=== PATIENT | male | born 1985 | race Native Hawaiian/Other Pacific Islander ===

== ENCOUNTER 2025-04-04 18:42 | Emergency (ER) | payer OTHER ==
[~2025-04-04] VITALS: Ht 177.8 cm; Wt 99.8 kg
[2025-04-04] MEDS ORDERED: Ketorolac Tromethamine 30mg Vial IM ONE (19:05)
[2025-04-04] MEDS ORDERED: HYDR1TAB94 PO (20:25)
== END 2025-04-04 20:41 | disposition home or self-care (01) ==
LOC: ER 18:42
DX: S62.305A Unspecified fracture of fourth metacarpal bone, left hand, initial encounter for closed fracture (principal); W17.89XA Other fall from one level to another, initial encounter; Y93.39 Activity, other involving climbing, rappelling and jumping off
CPT/HCPCS: 73130; 96372; 99283-25; J1885